=== PATIENT | female | born 1965 | race Caucasian/White ===

== ENCOUNTER 2017-05-02 14:17 | Emergency (ER) | payer SELFPAY ==
[~2017-05-02] VITALS: Ht 167.6 cm; Wt 70.0 kg
[~2017-05-02 14:17] MED LIST: ACYC800T PO; HYDR-3533 PO; MULT1TAB46 PO; ZOFR4TAB3 SL
[2017-05-02 14:18] VITALS: BP 138/80; PULSE 88; RESP 20; TEMP 98.7; O2SAT 98
[2017-05-02] MEDS ORDERED: DOXY100C PO (14:57)
--- NOTE | 2017-05-02 15:00 | PD ---
HPI . Cold symptoms Chief Complaint: Cold / Flu Symptoms Time Seen by Provider: 14:52 Travel History International Travel<30 days: No Contact w/Intl Traveler<30days: No Traveled to known affect area: No History of Present Illness HPI This patient presents with an 11 day history of cold symptoms. She is complaining with nasal congestion, sore throat, cough and bilateral ear discomfort. Symptoms have been persistent and have been getting progressively worse. The ear discomfort is her newest complaint. It started approximately 4 days ago. She also states that she feels dizzy especially when she bends over. She states that she has been taking pseudoephedrine and Mucinex without relief. She is now complaining with purulent nasal drainage. She does not have a productive cough. She is coughing up purulent postnasal drip. PFSH Past Medical History Headaches: Yes Kidney Stones: Yes Migraines: Yes Pancreatitis: Yes ?: Not Tubal Ligation: Yes Past Surgical History Appendectomy: Yes Section: Yes Social History Alcohol Use: Yes (occ) Tobacco Use: No Substance Use: No Allergies-Medications (Allergen,Severity, Reaction): Coded Allergies: Sulfa (Sulfonamide Antibiotics) (Verified Allergy, Severe, Rash, 05/02/17) clarithromycin (Verified Allergy, Severe, Nausea/Vomiting, 05/02/17) codeine (Verified Allergy, Severe, Rash, 05/02/17) penicillin G (Verified Allergy, Severe, Anaphylaxis, 05/02/17) sumatriptan (Verified Adverse Reaction, Severe, Tachycardia, 05/02/17) levofloxacin (Verified Adverse Reaction, Unknown, weakness, 05/02/17) Reported Meds & Prescriptions Reported Meds & Active Scripts Active Doxycycline Hyclate 100 Mg Cap 100 Mg PO BID Review of Systems Except as stated in HPI: all other systems reviewed are Neg General / Constitutional: No: Fever, Chills HENT: Positive: Sore Throat, Rhinorrhea, Congestion, No: Neck Stiffness Respiratory: Positive: Cough, No: Shortness of Breath, Wheezing Physical Exam Narrative GENERAL: Awake and alert and in no acute distress. SKIN: Warm and dry with no rashes or lesions. HEAD: Normocephalic/atraumatic. EYES: No conjunctival injection or discharge. ENT: TMs are shiny prado with good light reflexes bilaterally. Sinuses are nontender to percussion. Oropharynx has postnasal drip. NECK: Neck is supple with no cervical lymphadenopathy. CARDIOVASCULAR: Heart sounds are normal. RESPIRATORY: Lungs are clear with good air movement throughout. MUSCULOSKELETAL: Atraumatic. NEUROLOGICAL: Nonfocal. PSYCHIATRIC: Appropriate mood and affect. Data Data Last Documented VS Vital Signs Date Time Temp Pulse Resp B/P (MAP) Pulse Ox O2 Delivery O2 Flow Rate FiO2 05/02/17 14:18 98.7 88 20 138/80 (99) 98 Room Air [facility] Medical Decision Making Medical Screen Exam Complete: Yes Emergency Medical Condition: Yes Differential Diagnosis Differential diagnosis includes but is not limited to influenza, upper respiratory infection, bronchitis, pneumonia Narrative Course This patient presents with 11 day history of a cold. She does now report. Sinus drainage. Therefore, she will be treated with antibiotics. She is allergic to most antibiotics which would be considered for a sinus infection. Doxycycline is not on the list. Diagnosis Primary Impression: Upper respiratory infection Qualified Codes: J06.9 - Acute upper respiratory infection, unspecified; B97.89 - Other viral agents as the cause of diseases classified elsewhere Additional Impression: Sinusitis Qualified Codes: J01.90 - Acute sinusitis, unspecified Referrals: [facility] 3 days Patient Instructions: General Instructions Departure Forms: Tests/Procedures Additional Instructions: I recommend the use of a Neti Pot. You may use a nasal spray such as Afrin for up to 3 days as needed for nasal congestion. You may take an [id number] antihistamine such as Zyrtec, Yaquelin or Claritin as needed for runny secretions. You may take pseudoephedrine as needed for congestion. You will need to sign for this at the pharmacy. You may take plain Mucinex, 1200 mg twice a day as needed for thick secretions. You may take a cough syrup such as Delsym as needed for cough. Motrin as needed for fever and body aches. Throat lozenges/sprays as needed for sore throat. Warm salt water gargles for sore throat. Hot tea with lemon and honey also helps soothe a sore throat. Scripts Doxycycline Hyclate (Doxycycline Hyclate) 100 Mg Cap 100 MG PO BID for Infection, #20 CAP 0 Refills Prov: Tamie Telles MD 05/02/17 Disposition: 01 DISCHARGE HOME Condition: Stable Tamie Telles MD May 02, 2017 15:00
[2017-05-02 15:21] VITALS: BP 124/81; TEMP 97.8
== END 2017-05-02 15:22 | disposition home or self-care (01) ==
LOC: NEPD 14:17
DX: J06.9 Acute upper respiratory infection, unspecified (principal); J01.90 Acute sinusitis, unspecified; R05 Cough; H92.03 Otalgia, bilateral; Z87.442 Personal history of urinary calculi; Z87.19 Personal history of other diseases of the digestive system
CPT/HCPCS: 99283